=== PATIENT | female | born 1935 | race Caucasian/White ===

== ENCOUNTER → 2024-06-21 11:06 | Outpatient (REF) | payer MEDICARE, OTHER, SELFPAY | LOC: RAD 11:06 | PROVIDERS: ATTENDING PHYSICIAN Student in an Organized Health Care Education/Training Program; FAMILY PHYSICIAN Internal Medicine Geriatric Medicine | DX: K58.2 Mixed irritable bowel syndrome (principal) | CPT/HCPCS: 74019 ==